=== PATIENT | male | born 1940 | race Caucasian/White ===

== ENCOUNTER → 2019-01-21 | Day surgery (SDC) | payer MEDICARE, BC ==
--- NOTE | 2019-01-19 14:41 | Diagnostic Imaging Report ---
EXAM: CHEST 2 VIEWS DATE: 01/19/2019 1:43 PM INDICATION: Carpal tunnel syndrome, preoperative evaluation COMPARISON: None FINDINGS: The trachea is midline. The lungs are symmetrically expanded without evidence for large focal consolidation, pneumothorax, or significant pleural effusion. The cardiomediastinal silhouette and pulmonary vasculature are within normal limits. Mild tortuosity noted of the thoracic aorta. Degenerative changes noted of the visualized spine. No acute osseous abnormality is identified. The surrounding soft tissues are unremarkable. IMPRESSION: No acute cardiopulmonary process identified. Signed by: Dr. Roberto Milton MD on 01/19/2019 2:37 PM
[2019-01-19 15:42] LABS: BASOPHILS # (AUTO) 0.1 (0.0-0.1); BASOPHILS % 1.3 % (0.0-1.0); EOSINOPHILS # (AUTO) 0.5 (0.0-0.4); EOSINOPHILS % 6.7 % (0.0-6.0); HEMOGLOBIN 13.3 g/dL (14.0-18.0); LYMPHOCYTES # (AUTO) 1.3 (1.0-3.2); LYMPHOCYTES % 18.9 % (18.0-39.1); MEAN CORPUSCULAR HEMOGLOBIN 30.9 pg (28-32); MEAN CORPUSCULAR HGB CONC 32.4 g/dL (31-35); MEAN CORPUSCULAR VOLUME 95.3 fL (81-99); MONOCYTES # (AUTO) 0.6 (0.2-0.8); MONOCYTES % 8.1 % (4.4-11.3); NEUTROPHILS # (AUTO) 4.5 (2.1-6.9); NEUTROPHILS % 64.6 % (38.7-80.0); PLATELET COUNT 205 x10e3/uL (140-360); RED CELL DISTRIBUTION WIDTH 14.4 % (11.7-14.4)
[2019-01-19 15:53] LABS: INR 0.87; PROTHROMBIN TIME 12.3 seconds (11.9-14.5)
[2019-01-19 15:54] LABS: PARTIAL THROMBOPLASTIN TIME 30.6 seconds (23.8-35.5)
[2019-01-19 15:57] LABS: ANION GAP 14.1 mmol/L (8-16); CALCIUM 9.5 mg/dL (8.4-10.2); CREATININE, SERUM 1.54 mg/dL (0.72-1.25); POTASSIUM 4.1 mmol/L (3.5-5.1)
[~2019-01-21] MED LIST: BUPIVACAINE HCL 0.5% INJ 30 ML VIAL INJ ONE; CEFAZOLIN SOD 1 GM/NS 50ML 50 ML IV ONE; DEXAMETHASONE SOD PHOS INJ 4 MG/ML VIAL ONE; DEXTROSE 5% 250ML 250 ML IV ONE; GLIPIZIDE5 MG PO; JANUVIA100 MG PO; KETOROLAC TROMETHAMINE 30 MG/ML VIAL ONE; LEVOTHYROXINE112 MCG PO; LIDOCAINE HCL 2% LOCAL INJ 5 ML SDV VIAL INJ ONE; LISINOPRIL2.5 MG PO; PEPCID20 MG PO; PIOGLITAZONE HC45 MG PO; PROPOFOL IV EMULSION 10 MG/ML 20 ML VIAL ONE; SEVOFLURANE INHAL SOLN 250 ML PEN BTL ONE; SIMVASTATIN40 MG PO
--- OUTSIDE RECORDS SUMMARY | 2019-01-21 06:25 | XMS REPORT ---
Author Author [facility] Address Unknown Phone Unavailable Care Team Providers Care [employer] Billing Analyst Name Role Phone GIANNA MARAVILLA Unavailable Unavailable Problems This patient has no known problems. Allergies, Adverse Reactions, Alerts This patient has no known allergies or adverse reactions. Medications This patient has no known medications. Results Test Description Test Time Test Comments Text Results Atomic Results Result Comments CHEST 2 VIEWS 2019-01-19 14:36:00 [place] [id number] Patient Name: MATTHEW JOHNSON MR #: [id number] : 1940 Age/Sex: 78/M Req #: [id number] Adm Physician: Ordered by: GIANNA MARAVILLA MD Report #: [id number] Location: OR Room/Bed: Procedure: [id number] DX/CHEST 2 VIEWS Exam Date: Exam Time: REPORT STATUS: Signed EXAM: CHEST 2 VIEWS DATE: 01/19/2019 1:43 PM INDICATION: Carpal tunnel syndrome, preoperative evaluation COMPARISON: None FINDINGS: The trachea is midline. The lungs are symmetrically expanded without evidence for large focal consolidation, pneumothorax, or significant pleural effusion. The cardiomediastinal silhouette and pulmonary vasculature are within normal limits. Mild tortuosity noted of the thoracic aorta. Degenerative changes noted of the visualized spine. No acute osseous abnormality is identified. The surrounding soft tissues are unremarkable. IMPRESSION: No acute cardiopulmonary process identified. Signed by: Dr. Roberto Milton MD on 01/19/2019 2:37 PM Dictated By: ROBERTO MILTON MD [id number] Transcribed By: THOM on 01/19/19 1437 COPY TO: GIANNA MARAVILLA MD
[2019-01-21 10:30] VITALS: BP 141/85
--- NOTE | 2019-01-21 16:01 | Operative Report ---
DATE OF PROCEDURE: 01/21/2019 SURGEON: Cory Bedolla MD PREOPERATIVE DIAGNOSIS: Right carpal tunnel syndrome. POSTOPERATIVE DIAGNOSIS: Right carpal tunnel syndrome. PROCEDURE: Right carpal tunnel release. ANESTHESIA: General. INDICATIONS: The patient is a 78-year-old man, who presents with severe right carpal tunnel syndrome, was taken to the operating room for right carpal tunnel release. DESCRIPTION OF PROCEDURE: After induction of general anesthesia, the patient was placed on the operating table in supine position with the right arm abducted over a hand table. The right hand, wrist, and forearm were prepped and draped circumferentially in sterile fashion. The tourniquet was inflated over the upper arm to 250 mmHg. A small midline incision was created over the median palmar crease of the hand, just distal to the distal flexor crease of the wrist. The subcutaneous fat was divided. The transverse carpal ligament was incised with a #15 C blade until the underlying median nerve came into view. As the pathology assistant retracted the skin edges, the transverse carpal ligament was divided proximally and distally until the full length of the ligament had been divided and the full length of the median nerve was exposed and decompressed within the carpal tunnel. The point of maximal compression of nerve appeared to be 2 cm distal to the distal flexor crease of the wrist where the ligament was at its thickest. More distally, the recurrent motor branch of the nerve was preserved within its fat pad. The wound was irrigated with bacitracin solution. Hemostasis was secured. The subcutaneous layer was closed with 3-0 Vicryl suture. The skin was closed with 3-0 nylon suture in a horizontal mattress fashion. A dressing was applied. The patient was awakened, extubated, and taken to Postanesthesia Care Unit in stable condition. No intraoperative complications were encountered. Estimated blood loss was minimal. Cory Bedolla MD PP/MODL /[id number]
== END | disposition home or self-care (01) ==
LOC: OR 06:21
PROVIDERS: ATTEND Neurological Surgery
DX: G56.01 Carpal tunnel syndrome, right upper limb (principal); E11.9 Type 2 diabetes mellitus without complications; E78.5 Hyperlipidemia, unspecified; I10 Essential (primary) hypertension; E03.9 Hypothyroidism, unspecified; Z01.810 Encounter for preprocedural cardiovascular examination; Z01.812 Encounter for preprocedural laboratory examination; Z01.818 Encounter for other preprocedural examination; Z79.84 Long term (current) use of oral hypoglycemic drugs
CPT/HCPCS: 36415 ×2; 64721; 71046; 80048; 82948; 85025; 85610; 85730; 93005; J0690; J7070; J1100; J1885; J2001